=== PATIENT | male | born 1990 | race Caucasian/White ===

== ENCOUNTER 2021-06-16 03:58 | Emergency (ER) | payer OTHER ==
[~2021-06-16] VITALS: Ht 177.8 cm; Wt 81.7 kg
[2021-06-16] MEDS ORDERED: ZOFRAN ODT4 MG PO (06:08)
[2021-06-16 06:16] VITALS: BP 114/67
== END 2021-06-16 06:17 | disposition home or self-care (01) ==
LOC: ER 03:58
DX: R51.9 Headache, unspecified (principal)